=== PATIENT | female | born 1995 | race African-American/Black ===

== ENCOUNTER 2016-12-06 09:43 | Outpatient (CLI) | payer OTHER ==
[~2016-12-06] VITALS: Ht 154.9 cm; Wt 65.0 kg
[2016-12-06 09:52] VITALS: BP 112/62
[2016-12-06] MEDS ORDERED: PRENTAB9 PO (10:34)
--- NOTE | 2016-12-07 09:52 | HPE ---
DATE OF ADMISSION: 12/06/2016 21-year-old 2, para 1, LMP 03/28/2016, EDC 01/02/2017 at 36 and 1 weeks' of gestation with history of contractions. Her past history is 01/16/2012 at 32 weeks spontaneous rupture of membranes delivered a live male weighing 3 pounds 11 ounces. No consequences. Labs were A positive, HIV negative, hepatitis negative, RPR negative, rubella immune. Varicella nonimmune. Gonorrhea and chlamydia negative. 1-hour glucose 166, 3-hour glucose fasting 85, 1-hour 131, 2-hour 100, and 3-hour 88. CF was negative. On examination today there is distress on this female. Symphysis fundus height is 38, vertex -3, posterior thick, not dilated, no vaginal bleeding or loss. GBS culture was done. Blood pressure 112/62, respirations 18, pulse 87, temperature 98.2. Urine 1.010, pH 7. She has +3 bilirubin in her urine. Our plan is to hydrate the patient, monitor her carefully, possibly used terbutaline if necessary. GBS cultures on board. Prophylactically antibiotics for GBS and possibly prophylactics for neurologically completeness, although she is 36 and 1 weeks' of gestation. The patient is already on 17-hydroxyprogesterone. We will reevaluate her in 1 hour. The rest of the examination is unremarkable. She has a category 1 strip with contractions. She is normocephalic, atraumatic. Neck full range of motion. Pupils equal and reactive to light. Distal pulses symmetric. No evidence of deep venous throbmosis, (DVT), pulmonary embolus (PE) or superficial phlebitis. Chest is clear bilaterally to the bases. No wheezes or rhonchi. Symphysis fundus height is appropriate. She has no rashes, lesions or pruritus. No arthralgia or myalgia. No complaints of cough, wheeze, shortness of breath or dyspnea on exertion. No chest pain, not bleeding. Neurologically complete. No incontinency or frequency. No nausea, vomiting, diarrhea or constipation. Her 1-hour glucose was elevated, her 3-hour was normal. Past medical and surgical history unremarkable. She does not smoke or drink or abuse drugs. She is . There is no domestic violence. In summary we have a 36 and 1 week of gestation with active contractions, concentrated urine, not actively dilated. Plan of management is to hydrate, possibly use terbutaline if needed. She is GBS cultured and possibly prophylaxis, neurologic prophylaxis at 36 and 1 with magnesium sulfate if continuous. Will reevaluate her in 1 hour.
== END 2016-12-06 16:45 | disposition home or self-care (01) ==
LOC: M LDO 09:43
PROVIDERS: ATTEND Obstetrics & Gynecology
DX: O62.0 Primary inadequate contractions (principal); Z3A.36 36 weeks gestation of pregnancy; O99.89 Other specified diseases and conditions complicating pregnancy, childbirth and the puerperium; R82.90 Unspecified abnormal findings in urine; O09.213 Supervision of pregnancy with history of pre-term labor, third trimester

== ENCOUNTER 2017-01-05 19:02 | Inpatient (IN) | payer OTHER ==
[~2017-01-05] VITALS: Ht 154.9 cm; Wt 65.0 kg
[~2017-01-05 19:02] MED LIST: PRENTAB9 PO
[2017-01-05] MEDS ORDERED: LACTATED RINGER'S 1000 ML IV STA (20:43)
--- NOTE | 2017-01-05 20:59 | HPEPDOC ---
Obstetrical History & Physical General Date of Admission January 05, 2017 at 20:37 History of Present Illness Mehreen is a 21yo with SIUP at 40w3d presenting to L&D for complaint of leakage of fluid at 1500 today, clear/blood-tinged with continued leakage. She feels contractions but they are mild. Feels movement. course: received [place] until 36wk for hx of prior delivery at 32wk, elevated 1hr glucola with normal 3hr GTT PMhx: benign Chief Complaint: Contractions, term, LOF, term Information Provided By: Patient Care Care: Good Care Dating Final EDC: January 02, 2017 Final EDC by: LMP, 1st trimester (US) Antepartum Course Diagnos(e)s received [place] until 36wk for hx of prior delivery at 32wk, elevated 1hr glucola with normal 3hr GTT Height (inches): 61 Pre- weight (lbs.): 136 Admission Weight (lbs.): 154 Change in Weight (lbs.): 14 Past Medical History Past Obstetrical History : Past Obstetrical History: Multigravida Date of Delivery: January 16, 2012 Gestation: 32 Type of Delivery: Spontaneous Vaginal Del. 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 ABDOMEN: Gravid and non-tender to touch. FETUS: Is vertex (VTX) by sterile vaginal examination (SVE) HEART RATE: Regular rate and rhythm. LUNGS: Clear to auscultation (CTA). EXTREMITIES: trace edema BLE Grossly ruptured, nitrazine positive Pertinent Laboratoy Data Blood Type: A+ RBC Antibody Screen: Negative HIV: Negative Hepatitis B: Negative Hepatitis C: Unknown Rapid Plasma Reagin: Nonreactive Rubella: Immune Varicella: Nonreactive Chlamydia/Gonorrhea: Negative Group B Streptococcus: Negative Cystic Fibrosis: Negative Glucose Tolerance Test: 166 (3hr GTT 85/131/100/88) Anatomy Ultrasound Ultrasound Date: Aug 13, 2016 Placenta Location: Anterior Normal Anatomy: Yes Placenta Previa: No Steroid Therapy Steroid Therapy: No Vaginal Examination Dilation: 2cm Effacement: 0-30% Station: -2 Cervical Consistency: Medium Cervical Position: Middle Presentation: Cephalic presentation Assessment Variability: Moderate Accelerations: Positive Decelerations: None Tocometer Contractions: Yes Frequency: regular, every 2-5 min. Duration: greater than 60 seconds Strength: palpated as mild Assessment/Plan Assessment Mehreen is a 21yo with SIUP at 40w3d admitted to L&D for SROM, 1500 today with clear fluid. Grossly ruptured, nitrazine positive. SCE 10/17/-3. FHRT Cat I with ctx q3-4min, palpate mild. Cephalic by SCE. Vitals wnl, exam benign. GBS negative. 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 Diet: clear liquids Group B Streptococcus (GBS) negative Labs and intravenous (IV) per unit protocol. Counseled on possibility of need for Pitocin Lactated Ringers (LR): Bolus 1000 mL, then at 125 mL/hr. Epidural for pain management as desired, anesthesia consult ordered MD MISBAH Nguyen KATRINA D. MD January 05, 2017 20:59
[2017-01-05] MEDS ORDERED: OXYTOCIN DRIP 30 UNITS in APPROPRIATE DILUENT 1 EA IV SCH (21:00)
[2017-01-05 21:13] LABS: MEAN CORPUSCULAR HEMOGLOBIN 27.9 pg (27.0-33.0); MEAN CORPUSCULAR HGB CONC 32.9 g/dl (32.0-36.5); MEAN CORPUSCULAR VOLUME 84.8 fl (80.0-96.0); RED CELL DISTRIBUTION WIDTH 15.1 % (11.5-14.5); WHITE BLOOD COUNT 4.6 K/mm3 (4.0-10.0)
[2017-01-05 22:39] VITALS: BP 131/71
[2017-01-05 23:56] VITALS: BP 122/75
[2017-01-06] VITALS (67 sets, daily range): BP systolic 104–190; BP diastolic 53–95
[2017-01-06] MEDS ORDERED: FENTANYL 2MCG/ML ROPIVACAINE 0.2% IN 0.9% NACL 200ML IVBAG As Ordered ONE (01:46)
[2017-01-06] MEDS ORDERED: NALOXONE INJ 0.4 MG/1 ML VIAL (J2310) IV PRN (01:54)
[2017-01-06] MEDS ORDERED: ePHEDrine SULFATE 25 MG/5 ML(5MG/ML) SYRINGE IV PRN (01:54)
[2017-01-06] MEDS ORDERED: ONDANSETRON 4MG/2ML VIAL (J2405) IV PRN ×2 (01:54→18:15)
[2017-01-06] MEDS ORDERED: EPIDURAL/PCA KEYS XX PRN (01:54)
[2017-01-06] MEDS ORDERED: diphenhydrAMINE INJ 50MG/ML VIAL (J1200) IV PRN (01:54)
[2017-01-06] MEDS ORDERED: LACTATED RINGER'S 1000 ML IV PRN (01:54)
[2017-01-06] MEDS ORDERED: EPIDURAL COMMENT XX SCH (01:54)
[2017-01-06] MEDS ORDERED: FENTANYL/ROPIVACAINE/NACL BAG 200 ML EPIDURAL SCH (01:54)
[2017-01-06] MEDS ORDERED: REFRIGERATOR IV KEYS XX PRN (01:54)
[2017-01-06] MEDS: LR 1,000 ML IV SCH ×2 (02:01→08:14)
--- NOTE | 2017-01-06 05:40 | IPNPDOC ---
Text Note Date of Service The patient was seen on 01/06/17. NOTE Mehreen is comfortable now with epidural. Pitocin was at 4u with regular ctx and Cat I FHRT. SCE /-2 now, forebag palpated and ruptured with amnio hook with clear fluid. FHR decel to 80's after that, so turned off pitocin, gave O2 and IVF bolus, repositioned and placed FSE with recovery back to baseline. Will continue to watch with pitocin off for 30 min and then resume as necessary. Making good progress. Safe to proceed. Dr. Chris Tidwell MD VS,Jose, I+O VS, Jose, I+O Laboratory Tests 01/05/17 21:05 Red Blood Count 3.58 L, Mean Corpuscular Volume 84.8, Mean Corpuscular Hemoglobin 27.9, Mean Corpuscular Hemoglobin Concent 32.9, Red Cell Distribution Width 15.1 H CHRIS TIDWELL MD January 06, 2017 05:40
[2017-01-06] MEDS: CALCIUM CARBONATE 500 MG CHEW U/D PO PRN ×2 (08:53→12:32)
[2017-01-06] MEDS ORDERED: ONDANSETRON 4MG/2ML VIAL (J2405) IV ONE (12:00)
[2017-01-06 17:28] LABS: CORD GAS ABE V -4.8; CORD GAS HCO3 V 20.1 MEQ/L; CORD GAS O2 SAT V 72.4 %; CORD GAS PCO2 V 37.4 mmHg; CORD GAS PH V 7.349 UNITS; CORD GAS SBC V 19.9 MEQ/L; CORD GAS TCO2 V 21.3 MEQ/L
[2017-01-06 17:37] LABS: CORD GAS ABE A -5.7; CORD GAS HCO3 A 21.3 MEQ/L; CORD GAS O2 SAT A 61.1 %; CORD GAS PCO2 A 46.8 mmHg; CORD GAS PH A 7.275 UNITS; CORD GAS PO2 A 27.9 mmHg; CORD GAS TCO2 A 22.7 MEQ/L
[2017-01-06] MEDS ORDERED: METHYLERGONOVINE MALEATE 0.2 MG/ML VIAL (J2210) As Ordered ONE (17:51)
[2017-01-06] MEDS ORDERED: miSOPROStol 200 MCG TAB (S0191) As Ordered ONE (18:02)
[2017-01-06] MEDS ORDERED: OXYTOCIN DRIP 30 UNITS in APPROPRIATE DILUENT 1 EA IV SCH (18:08)
[2017-01-06] MEDS ORDERED: RHOGAM 300 MCG (1500 IU) INJ (J2790) IM SCH (18:15)
[2017-01-06] MEDS ORDERED: miSOPROStol 200 MCG TAB (S0191) PR ONE (18:15)
[2017-01-06] MEDS ORDERED: ACETAMINOPHEN 500 MG TAB PO PRN (18:15)
[2017-01-06] MEDS ORDERED: MEASLES,MUMPS,RUBELLA VACCINE INJ (MMR-II) (90707) SC SCH (18:15)
[2017-01-06] MEDS ORDERED: METHYLERGONOVINE MALEATE 0.2 MG/ML VIAL (J2210) IM ONE (18:15)
[2017-01-06] MEDS ORDERED: METHYLERGONOVINE MALEATE 0.2 MG/ML VIAL (J2210) IM PRN (18:15)
[2017-01-06] MEDS ORDERED: METOCLOPRAMIDE INJ 10MG/2ML VIAL (J2765) IV PRN (18:15)
[2017-01-06] MEDS ORDERED: DIBUCAINE 1% OINTMENT 30GM TOP PRN (18:15)
[2017-01-06] MEDS ORDERED: PERCOCET 5MG/325MG TAB PO ONE (18:30)
[2017-01-06] MEDS ORDERED: MORPHINE 2 MG/ML 1ML SYRINGE IV ONE (20:15)
[2017-01-06] MEDS ORDERED: PERCOCET 5MG/325MG TAB PO PRN (21:15)
[2017-01-06] MEDS: DOCUSATE SODIUM 100 MG CAP PO SCH (21:35)
[2017-01-06] MEDS: IBUPROFEN 800 MG TAB PO PRN (21:36)
[2017-01-06] MEDS: PERCOCET 5MG/325MG TAB PO PRN (22:42)
[2017-01-07] MEDS: IBUPROFEN 800 MG TAB PO PRN ×2 (05:43→22:13)
[2017-01-07 06:23] VITALS: BP 129/83
[2017-01-07 06:53] LABS: MEAN CORPUSCULAR HGB CONC 32.6 g/dl (32.0-36.5); MEAN CORPUSCULAR VOLUME 82.9 fl (80.0-96.0); RED CELL DISTRIBUTION WIDTH 15.2 % (11.5-14.5); WHITE BLOOD COUNT 14.8 K/mm3 (4.0-10.0)
[2017-01-07] MEDS: PERCOCET 5MG/325MG TAB PO PRN ×2 (07:16→16:08)
[2017-01-07] MEDS: PRENATAL VITAMIN TAB PO SCH (08:25)
[2017-01-07] MEDS: DOCUSATE SODIUM 100 MG CAP PO SCH ×2 (08:26→22:12)
[2017-01-07 18:30] VITALS: BP 134/85
[2017-01-08] MEDS: PERCOCET 5MG/325MG TAB PO PRN (00:22)
[2017-01-08 06:04] VITALS: BP 113/53
[2017-01-08] MEDS: PRENATAL VITAMIN TAB PO SCH (08:37)
[2017-01-08] MEDS: IBUPROFEN 800 MG TAB PO PRN (08:38)
[2017-01-08] MEDS: DOCUSATE SODIUM 100 MG CAP PO SCH (08:38)
[2017-01-08] MEDS ORDERED: COLA100C3 PO (10:00)
[2017-01-08] MEDS ORDERED: IBUP-1114 PO (10:00)
[2017-01-08] MEDS ORDERED: OXYC1TAB23 PO (10:00)
== END 2017-01-08 10:30 | disposition home or self-care (01) | DRG 774 ==
LOC: M LDO 19:02 → M LDI 20:37 → M OBS 01-06 21:20
PROVIDERS: ADMIT Obstetrics & Gynecology; ATTEND Obstetrics & Gynecology
PROC: 10E0XZZ Delivery of Products of Conception, External Approach (ICD-10-PCS; principal; 2017-01-06)
PROC: 0DQR0ZZ Repair Anal Sphincter, Open Approach (ICD-10-PCS; 2017-01-06)
DX: O48.0 Post-term pregnancy (principal); O72.1 Other immediate postpartum hemorrhage; O70.22 Third degree perineal laceration during delivery, IIIb; Z37.0 Single live birth; Z3A.40 40 weeks gestation of pregnancy; Z87.51 Personal history of pre-term labor; O69.82X0 Labor and delivery complicated by other cord entanglement, without compression, not applicable or unspecified; O66.0 Obstructed labor due to shoulder dystocia

== ENCOUNTER 2017-01-11 12:25 | Emergency (ER) | payer OTHER ==
[~2017-01-11] VITALS: Ht 154.9 cm; Wt 63.5 kg
[~2017-01-11 12:25] MED LIST changes: +COLA100C3 PO; +IBUP-1114 PO; +OXYC1TAB23 PO
[2017-01-11] MEDS ORDERED: FLEET ENEMA PR PRN (13:15)
[2017-01-11 14:34] VITALS: BP 119/69
== END 2017-01-11 14:42 | disposition home or self-care (01) ==
LOC: M ED 13:00
DX: K59.00 Constipation, unspecified (principal); Z79.899 Other long term (current) drug therapy

== ENCOUNTER 2017-07-14 02:30 | Emergency (ER) | payer OTHER ==
[~2017-07-14] VITALS: Ht 157.5 cm; Wt 65.9 kg
[2017-07-14 02:30] VITALS: BP 153/64
[~2017-07-14 02:30] MED LIST changes: -COLA100C3 PO; +COLA100C5 PO
== END 2017-07-14 04:30 | disposition left against medical advice (07) ==
LOC: M ED 02:30
DX: Z53.21 Procedure and treatment not carried out due to patient leaving prior to being seen by health care provider (principal)

== ENCOUNTER 2018-05-16 07:08 | Emergency (ER) | payer OTHER ==
[2018-05-16 07:58] LABS: KETONE, URINE AUTO RFX NEGATIVE (NEGATIVE); LEUKOCYTE ESTERASE UR AUTO RFX NEGATIVE (NEGATIVE); MUCUS, URINE RFX SMALL (NEGATIVE); NITRITE, URINE AUTO RFX NEGATIVE (NEGATIVE); RBC, URINE AUTO RFX TNTC /HPF (0-3); SPECIFIC GRAVITY UR AUTO RFX 1.026 (1.002-1.035); SQUAM EPITHELIAL CELL UR AURFX 8 /HPF (0-6); WBC, URINE AUTO RFX 6 /HPF (0-3)
[2018-05-16] MEDS: KETOROLAC 60 MG/2 ML VIAL (J1885) IM (08:31)
[2018-05-16 08:33] LABS: BASO % 0.6 % (0.0-1.0); EOS # 0.1 10^3/uL (0.0-0.50); EOS % 1.7 % (0.0-3.0); HEMATOCRIT 43.1 % (36.0-47.0); HEMOGLOBIN 13.7 g/dl (12.0-15.5); IMMATURE GRANULOCYTE % 0.3 % (0-3.0); LYMPH # 1.6 10^3/uL (1.5-6.5); LYMPH % 44.6 % (24.0-44.0); MEAN CORPUSCULAR HEMOGLOBIN 27.5 pg (27.0-33.0); MEAN CORPUSCULAR HGB CONC 31.8 g/dl (32.0-36.5); MEAN CORPUSCULAR VOLUME 86.5 fl (80.0-96.0); MONO # 0.3 10^3/uL (0.0-0.8); MONO % 9.4 % (0.0-5.0); NEUTROPHILS # 1.6 10^3/uL (1.8-7.7); NEUTROPHILS % 43.4 % (36.0-66.0); PLATELET COUNT, AUTOMATED 302 10^3/uL (150-450); RED BLOOD COUNT 4.98 10^6/uL (4.00-5.40); RED CELL DISTRIBUTION WIDTH 12.2 % (11.5-14.5); WHITE BLOOD COUNT 3.6 10^3/uL (4.0-10.0)
[2018-05-16 09:12] LABS: ANION GAP 7 MEQ/L (8-16); BLOOD UREA NITROGEN 14 MG/DL (7-18); CALCIUM LEVEL 9.5 MG/DL (8.5-10.1); CARBON DIOXIDE LEVEL 25 MEQ/L (21-32); CHLORIDE LEVEL 110 MEQ/L (98-107); CREATININE FOR GFR 0.72 MG/DL (0.55-1.30); GLOMERULAR FILTRATION RATE > 60.0 (>60); GLUCOSE, FASTING 80 MG/DL (70-100); POTASSIUM SERUM 3.9 MEQ/L (3.5-5.1); SODIUM LEVEL 142 MEQ/L (136-145)
== END 2018-05-16 09:34 | disposition home or self-care (01) ==
LOC: M ED 07:08
DX: N93.9 Abnormal uterine and vaginal bleeding, unspecified (principal); R10.2 Pelvic and perineal pain
CPT/HCPCS: J1885

== ENCOUNTER 2019-02-27 05:21 | Emergency (ER) | payer OTHER ==
[~2019-02-27] VITALS: Ht 180.3 cm; Wt 65.9 kg
[2019-02-27 06:02] LABS: BASO % 0.3 % (0.0-1.0); EOS # 0.1 10^3/uL (0.0-0.50); EOS % 1.4 % (0.0-3.0); HEMATOCRIT 40.1 % (36.0-47.0); HEMOGLOBIN 12.8 g/dl (12.0-15.5); LYMPH # 2.5 10^3/uL (1.5-6.5); LYMPH % 37.9 % (24.0-44.0); MEAN CORPUSCULAR HEMOGLOBIN 27.8 pg (27.0-33.0); MEAN CORPUSCULAR HGB CONC 31.9 g/dl (32.0-36.5); MONO # 0.4 10^3/uL (0.0-0.8); MONO % 6.2 % (0.0-5.0); NEUTROPHILS # 3.5 10^3/uL (1.8-7.7); PLATELET COUNT, AUTOMATED 318 10^3/uL (150-450); RED BLOOD COUNT 4.61 10^6/uL (4.00-5.40); WHITE BLOOD COUNT 6.5 10^3/uL (4.0-10.0)
[2019-02-27 06:06] LABS: URINE PREG TEST NEGATIVE (NEGATIVE)
[2019-02-27] MEDS ORDERED: NS 1,000 ML IV ONE (06:15)
[2019-02-27 06:24] LABS: ALBUMIN 3.8 GM/DL (3.2-5.2); ALT/SGPT 14 U/L (12-78); BILIRUBIN,DIRECT 0.2 MG/DL (0.0-0.2); BILIRUBIN,TOTAL 0.5 MG/DL (0.2-1.0); BLOOD UREA NITROGEN 15 MG/DL (7-18); CALCIUM LEVEL 8.9 MG/DL (8.5-10.1); CARBON DIOXIDE LEVEL 28 MEQ/L (21-32); CHLORIDE LEVEL 107 MEQ/L (98-107); CREATININE FOR GFR 0.78 MG/DL (0.55-1.30); GLOMERULAR FILTRATION RATE > 60.0 (>60); GLUCOSE, FASTING 90 MG/DL (70-100); LIPASE 337 U/L (73-393); POTASSIUM SERUM 4.1 MEQ/L (3.5-5.1); SODIUM LEVEL 141 MEQ/L (136-145); TOTAL PROTEIN 7.4 GM/DL (6.4-8.2)
[2019-02-27] MEDS ORDERED: MACR100C43 PO (06:59)
[2019-02-27] MEDS ORDERED: ONDA4TAB6 PO (07:00)
[2019-02-27 07:04] VITALS: BP 125/71
== END 2019-02-27 07:21 | disposition home or self-care (01) ==
LOC: M ED 05:21
DX: N39.0 Urinary tract infection, site not specified (principal); R10.9 Unspecified abdominal pain; R11.2 Nausea with vomiting, unspecified